=== PATIENT | female | born 1950 | race Caucasian/White ===

== ENCOUNTER 2019-10-16 09:07 | Day surgery (SDC) | payer MEDICARE, BC ==
[2019-10-16 08:50] LABS: CORONAVIRUS COVID-19 RAPID PCR NEGATIVE (NEGATIVE)
[~2019-10-16 09:07] MED LIST: Lactated Ringers 1,000 ML IV SCH; Propofol 200 MG/20 ML SDV ONE; Sodium Chloride 0.9% 10 ML Syringe FLUSH PRN
[2019-10-16] MEDS ORDERED: Propofol 200 MG/20 ML SDV IV ONE (09:08)
--- NOTE | 2019-10-16 10:08 | PCM.PN ---
- General Info Date of Service: 10/16/19 - Review of Systems Systems Review Comment:: 69-year-old female with history of colon polyps here for colonoscopy. She has a history of loose stools since a bowel resection and this pattern has continued unchanged recently. Her last colonoscopy was approximately 5 years ago. She denies any blood in her stools. She is medically stable to proceed today. I have discussed the proposed colonoscopy with the patient. She agrees to proceed excepting risks. I have reviewed her recent history and physical and no significant changes are noted. - Patient Data Vitals - Most Recent: Last Vital Signs Temp 96.4 F L 10/16/19 09:08 Pulse 72 10/16/19 09:08 Resp 18 10/16/19 09:08 BP 131/66 10/16/19 09:08 Pulse Ox 98 10/16/19 09:08 Weight - Most Recent: 87.09 kg Lab Results Last 24 Hours: Laboratory Results - last 24 hr 10/16/19 Range/Units 07:38 SARS-CoV-2 RNA (RT-PCR) Negative (NEGATIVE) Med Orders - Current: Current Medications Lactated Ringer's (Ringers, Lactated) 1,000 mls @ 50 mls/hr IV ASDIRECTED REED Sodium Chloride (Saline Flush) 10 ml FLUSH Q8HR PRN PRN Reason: keep vein open Sepsis Event Note - Focused Exam Vital Signs: Vital Signs Temp Pulse Resp BP Pulse Ox 10/16/19 09:08 96.4 F L 72 18 131/66 98 Date Exam was Performed: 10/16/19 Time Exam was Performed: 10:06 - Problem List Review Problem List Initiated/Reviewed/Updated: Yes - My Orders Last 24 Hours: My Active Orders 10/16/19 09:00 Peripheral IV Care [RC] . DIRECTED Lactated Ringers [Ringers, Lactated] 1,000 ml IV ASDIRECTED Sodium Chloride 0.9% [Saline Flush] 10 ml FLUSH Q8HR PRN Peripheral IV Insertion Adult [OM.PC] Routine 10/16/19 10:00 Verify Patient Consent Obtain [RC] ASDIRECTED 10/16/19 Breakfast Nothing Per Oral Diet [DIET] - Assessment Assessment:: History of colon polyps - Plan Plan:: Colonoscopy
--- NOTE | 2019-10-16 10:47 | PCM.OPNOTE ---
- General Post-Op/Procedure Note Date of Surgery/Procedure: 10/16/19 Operative Procedure(s): Colonoscopy with Polypectomy Findings: Small sessile polyp in transverse colon Normal appearing Transverse colon to Small Bowel Anastomosis Pre Op Diagnosis: History of colon polyps Post-Op Diagnosis: Colon Polyp Anesthesia Technique: MAC Primary Surgeon: Adonis Knox Pathology: Transverse colon polyp EBL in mLs: 2 Complications: None Condition: Good
[2019-10-16 12:11] VITALS: BP 125/67; PULSE 70
--- NOTE | 2019-10-16 16:08 | OR ---
DATE OF SURGERY: 10/16/2019 SURGEON: Adonis Knox MD PREOPERATIVE DIAGNOSIS: History of colon polyps. POSTOPERATIVE DIAGNOSIS: Colon polyp. OPERATION PERFORMED: Colonoscopy with polypectomy. INDICATIONS FOR SURGERY: This 69-year-old female has a known history of colon polyps. Her last colonoscopy was 5 years ago and she comes for surveillance colonoscopy. FINDINGS: A single polyp was noted on today's exam. It is in the mid transverse colon, it is a 5 mm sessile polyp. The patient has had a prior right colon resection and the transverse colon to small bowel anastomosis appears to be well healed. It is widely patent and the distal small bowel visualized and appeared normal. The remainder of the colon appears normal. The patient also has moderate-sized external hemorrhoids. DESCRIPTION OF PROCEDURE: The patient was taken to the operating room. She was given intravenous sedation and with her in the left lateral decubitus position, digital rectal exam was performed showing no rectal masses. The Olympus colonoscope was inserted into the rectum. Retroflexed examination of the rectal canal was performed. The scope was then carefully advanced under direct visualization through the entire length of the remaining colon to the level of the transverse colon to small bowel anastomosis. The anastomosis was carefully examined and appeared normal. The distal portion of the ileum also appeared normal. In this region, the above-described small polyp was identified. This was removed grossly in its entirety with multiple bites of the cold biopsy forceps. With no sign of complication, the scope was slowly withdrawn sequentially re-examining the remaining colonic segments until the entire present colon and rectum were fully examined. The scope was removed. The patient was taken from the operating room in satisfactory condition. ESTIMATED BLOOD LOSS: 2 mL. COMPLICATIONS: None. PROGNOSIS: Good. /[id number]/MODL
== END 2019-10-16 12:35 | disposition home or self-care (01) ==
LOC: KA.SDS 09:07
PROVIDERS: ATTEND Surgery
DX: Z12.11 Encounter for screening for malignant neoplasm of colon (principal); D12.3 Benign neoplasm of transverse colon; M06.9 Rheumatoid arthritis, unspecified; I10 Essential (primary) hypertension; E03.9 Hypothyroidism, unspecified; Z11.59 Encounter for screening for other viral diseases; R17 Unspecified jaundice; E78.5 Hyperlipidemia, unspecified; K21.9 Gastro-esophageal reflux disease without esophagitis; Z86.010 Personal history of colon polyps; Z98.890 Other specified postprocedural states; Z79.899 Other long term (current) drug therapy; Z90.49 Acquired absence of other specified parts of digestive tract
CPT/HCPCS: 00811; J2704; J7120; U0002

== ENCOUNTER 2024-08-28 06:04 | Day surgery (SDC) | payer MEDICARE ==
[~2024-08-28 06:04] MED LIST changes: -Lactated Ringers 1,000 ML IV SCH; -Propofol 200 MG/20 ML SDV ONE
[2024-08-28] MEDS: Lactated Ringers 1,000 ML IV SCH (06:10)
[2024-08-28] MEDS ORDERED: Propofol 200 MG/20 ML SDV ONE (07:05)
[2024-08-28] MEDS ORDERED: Midazolam 1 MG/ML 2 ML SDV ONE (07:05)
[2024-08-28 11:42] VITALS: BP 147/80; PULSE 77
== END 2024-08-28 08:52 | disposition home or self-care (01) ==
LOC: KA.SDS 06:04
PROVIDERS: ATTEND Surgery
DX: Z12.11 Encounter for screening for malignant neoplasm of colon (principal); D12.5 Benign neoplasm of sigmoid colon; D12.3 Benign neoplasm of transverse colon; K64.4 Residual hemorrhoidal skin tags; Z86.0100 Personal history of colon polyps, unspecified; I10 Essential (primary) hypertension; E78.5 Hyperlipidemia, unspecified; K21.9 Gastro-esophageal reflux disease without esophagitis; E03.9 Hypothyroidism, unspecified; Z79.890 Hormone replacement therapy; Z79.899 Other long term (current) drug therapy
CPT/HCPCS: 00811; 45380; 45385; 99100; J2250; J2704; J7120